=== PATIENT | female | born 1965 | race Caucasian/White ===

== ENCOUNTER 2022-08-27 07:38 | Day surgery (SDC) | payer MEDICAID ==
[2022-08-26 13:36] LABS: COVID AG,FIA SOURCE NASAL SWAB
[~2022-08-27] VITALS: Ht 162.6 cm; Wt 81.8 kg
[~2022-08-27 07:38] MED LIST: SODIUM CHLORIDE 0.9% 1,000 ML IV ONE
[2022-08-27] MEDS ORDERED: PROPOFOL 1% 20 ML VIAL IVP ONE (07:39)
[2022-08-27] MEDS ORDERED: LIDOCAINE/PF 2% 5 ML VIAL IM ONE (07:39)
[2022-08-27] MEDS ORDERED: SODIUM CHLORIDE 0.9% 1,000 ML ONE (07:58)
== END 2022-08-27 10:35 | disposition home or self-care (01) ==
LOC: SURGERY 07:38
PROVIDERS: ATTEND Internal Medicine Gastroenterology
DX: Z12.11 Encounter for screening for malignant neoplasm of colon (principal); K64.0 First degree hemorrhoids; I10 Essential (primary) hypertension; E11.9 Type 2 diabetes mellitus without complications; E78.5 Hyperlipidemia, unspecified; D50.9 Iron deficiency anemia, unspecified; Z90.710 Acquired absence of both cervix and uterus; Z98.890 Other specified postprocedural states; Z98.51 Tubal ligation status; Z79.899 Other long term (current) drug therapy; Z83.3 Family history of diabetes mellitus; Z20.822 Contact with and (suspected) exposure to COVID-19
CPT/HCPCS: 87426; 45378; C9803; J2704; J3490; J7030